=== PATIENT | female | born 1990 | race African-American/Black ===

== ENCOUNTER 2017-04-25 21:44 | Emergency (ER) | payer MEDICAID ==
[~2017-04-25] VITALS: Ht 162.6 cm; Wt 84.0 kg
[~2017-04-25 21:44] MED LIST: METR0.7514 PV; MIREIUD IU; NAPR550 PO
[2017-04-25 21:47] VITALS: BP 115/68; PULSE 114; RESP 16; TEMP 99.4; O2SAT 100
--- NOTE | 2017-04-25 21:51 | PD ---
Physical Exam Date Seen by Provider: Apr 25, 2017 Time Seen by Provider: 21:50 Narrative 26 yo female here for headache and neck stiffness. Headaches on/off for 1 week. Pressure like. Nothing makes it better. Come and go. Since yesterday developed stiffness to the neck and cannot look down without pain. Denies fevers. She is 21 weeks . Vitals are stable in triage. Awaiting Bed placement. Data Data Last Documented VS Vital Signs Date Time Temp Pulse Resp B/P Pulse Ox O2 Delivery O2 Flow Rate FiO2 04/25/17 21:47 99.4 114 16 115/68 100 Room Air [facility] Medical Record Reviewed: Yes Supervised Visit with NATALIYA: No Severiano Good Apr 25, 2017 21:51
[2017-04-25] MEDS ORDERED: PRENATAL VITAMIN PO (22:06)
[2017-04-25] MEDS ORDERED: SODIUM CHLOR 0.9% 1000 ML INJ 1,000 ML IV ONE (22:15)
[2017-04-25] MEDS ORDERED: diphenhydrAMINE HCL 50 MG/ML VIAL IV PUSH ONE (22:15)
[2017-04-25] MEDS ORDERED: METOCLOPRAMIDE INJ 10 MG in SODIUM CHLORIDE 0.9% INJ 50 ML IV ONE (22:15)
[2017-04-25 22:25] VITALS: BP 118/63; PULSE 115; RESP 16; O2SAT 98
[2017-04-25 22:31] LABS: AUTOMATED NEUTROPHIL # 8.3 TH/MM3 (1.8-7.7); BASOPHIL % 0.2 % (0.0-2.0); EOSINOPHIL # 0.1 TH/MM3 (0-0.4); EOSINOPHIL % 0.7 % (0.0-4.0); HEMATOCRIT 31.3 % (35.0-46.0); HEMO FLAGS DIFF FINAL; LYMPH % 15.6 % (9.0-44.0); LYMPHOCYTE # 1.7 TH/MM3 (1.0-4.8); MEAN CELL VOLUME 90.8 FL (80.0-100.0); MEAN CORPUSCULAR HEMOGLOBIN 31.7 PG (27.0-34.0); MEAN CORPUSCULAR HGB CONC 34.9 % (32.0-36.0); MONO % 9.4 % (0.0-8.0); NEUT % 74.1 % (16.0-70.0); PLATELET COUNT 231 TH/MM3 (150-450); RED BLOOD COUNT 3.45 MIL/MM3 (4.00-5.30); RED CELL DISTRIBUTION WIDTH 13.1 % (11.6-17.2); WHITE BLOOD COUNT 11.2 TH/MM3 (4.0-11.0)
[2017-04-25 22:49] LABS: ANION GAP 9 MEQ/L (5-15); BICARBONATE 24.4 MEQ/L (21.0-32.0); BLOOD UREA NITROGEN 5 MG/DL (7-18); CHLORIDE 109 MEQ/L (98-107); GLOMERULAR FILTRATION RATE 164 ML/MIN (>89); POTASSIUM 3.6 MEQ/L (3.5-5.1); SODIUM (NA) 142 MEQ/L (136-145)
[2017-04-25 22:52] LABS: ALKALINE PHOSPHATASE 59 U/L (45-117); ALT (GPT) 32 U/L (10-53); AST (GOT) 21 U/L (15-37); TOTAL BILIRUBIN ADULT 0.2 MG/DL (0.2-1.0)
[2017-04-25 23:00] VITALS: BP 123/57; PULSE 106; RESP 16; O2SAT 98
[2017-04-25 23:20] LABS: BLOOD, URINE NEG (NEG); GLUCOSE,URINE NEG (NEG); KETONE, URINE NEG (NEG); MUCUS URINE FEW /lpf (OCC); NITRITE,URINE NEG (NEG); SQUAMOUS EPITHELIAL CELL URINE 1 /hpf (0-5); URINE COLOR YELLOW (YELLW/STRAW)
[2017-04-25 23:21] LABS: COMMENT (UR) CULT NOT INDICATED; CULTURE IF INDICATED CULT NOT INDICATED
--- NOTE | 2017-04-25 23:43 | PD ---
HPI Chief Complaint: Headache Time Seen by Provider: 22:02 Travel History International Travel<30 days: No Contact w/Intl Traveler<30days: No Traveled to known affect area: No History of Present Illness HPI Patient is a 26-year-old female, 21 weeks , who comes in complaining of a headache. She says she has had the headache all week, is mostly frontal and puts pressure on her eyes. She says today while at work, as a [employer], she started to have spasm in the right side of her neck. She says that the muscles in her neck are very tense this has caused increased pain in her head. She denies fever or chills. She says she has occasional nausea and occasional blurred vision. She denies any head trauma. She has not noticed any leg swelling. She says she is not had any complications and her other 2 pregnancies. She called her OB, who thought it might be a caffeine withdrawal headache. PFSH Past Medical History Diminished Hearing: No ?: LMP: November 26, 2016 Menopausal: No : 1 Para: 1 Miscarriage: 0 : 0 Social History Alcohol Use: No Tobacco Use: No Substance Use: No Allergies-Medications (Allergen,Severity, Reaction): Coded Allergies: No Known Allergies (Verified , 04/25/17) Reported Meds & Prescriptions Reported Meds & Active Scripts Active Reported [ Vitamin] PO DAILY Review of Systems Except as stated in HPI: all other systems reviewed are Neg General / Constitutional: No: Fever, Chills HENT: Positive: Headaches, No: Lightheadedness Cardiovascular: No: Chest Pain or Discomfort Respiratory: No: Shortness of Breath Gastrointestinal: Positive: Nausea, No: Vomiting, Abdominal Pain Genitourinary: No: Dysuria Musculoskeletal: No: Edema Skin: No Rash, No Change in Pigmentation Neurologic: No: Weakness, Dizziness, Change in Mentation, Sensory Disturbance Physical Exam Narrative GENERAL: Her, no acute distress. SKIN: Focused skin assessment warm/dry. HEAD: Atraumatic. Normocephalic. Tender to palpation of the frontal sinus. EYES: Pupils equal and round and reactive. No scleral icterus. Extraocular movements intact. ENT: Mucous membranes pink and moist. NECK: Trachea midline. No JVD. Tender to the right trapezius muscle. No meningeal signs. CARDIOVASCULAR: Regular rate and rhythm. No murmur appreciated. RESPIRATORY: No accessory muscle use. Clear to auscultation. Breath sounds equal bilaterally. GASTROINTESTINAL: Gravid abdomen, nontender to palpation. MUSCULOSKELETAL: No obvious deformities. No clubbing. No cyanosis. No edema. NEUROLOGICAL: Awake and alert. No obvious cranial nerve deficits. Motor grossly within normal limits. Normal speech. PSYCHIATRIC: Appropriate mood and affect; insight and judgment normal. Data Data Last Documented VS Vital Signs Date Time Temp Pulse Resp B/P Pulse Ox O2 Delivery O2 Flow Rate FiO2 04/25/17 21:47 99.4 114 16 115/68 100 Room Air Orders Iv Access Insert/Monitor (04/25/17 22:10) Complete Blood Count With Diff (04/25/17 22:10) Comprehensive Metabolic Panel (04/25/17 22:10) Urinalysis - C+S If Indicated (04/25/17 22:10) Diphenhydramine Inj (Benadryl Inj) (04/25/17 22:15) Metoclopramide Inj (Reglan Inj) (04/25/17 22:15) Sodium Chlor 0.9% 1000 Ml Inj (Ns 1000 M (04/25/17 22:15) Acetaminophen (Tylenol) (04/25/17 23:45) Labs Laboratory Tests Test 04/25/17 04/25/17 22:10 23:00 White Blood Count 11.2 TH/MM3 Red Blood Count 3.45 MIL/MM3 Hemoglobin 10.9 GM/DL Hematocrit 31.3 % Mean Corpuscular Volume 90.8 FL Mean Corpuscular Hemoglobin 31.7 PG Mean Corpuscular Hemoglobin 34.9 % Concent Red Cell Distribution Width 13.1 % Platelet Count 231 TH/MM3 Mean Platelet Volume 7.6 FL Neutrophils (%) (Auto) 74.1 % Lymphocytes (%) (Auto) 15.6 % Monocytes (%) (Auto) 9.4 % Eosinophils (%) (Auto) 0.7 % Basophils (%) (Auto) 0.2 % Neutrophils # (Auto) 8.3 TH/MM3 Lymphocytes # (Auto) 1.7 TH/MM3 Monocytes # (Auto) 1.0 TH/MM3 Eosinophils # (Auto) 0.1 TH/MM3 Basophils # (Auto) 0.0 TH/MM3 CBC Comment DIFF FINAL Differential Comment Sodium Level 142 MEQ/L Potassium Level 3.6 MEQ/L Chloride Level 109 MEQ/L Carbon Dioxide Level 24.4 MEQ/L Anion Gap 9 MEQ/L Blood Urea Nitrogen 5 MG/DL Creatinine 0.55 MG/DL Estimat Glomerular Filtration 164 ML/MIN Rate Random Glucose 94 MG/DL Calcium Level 9.1 MG/DL Total Bilirubin 0.2 MG/DL Aspartate Amino Transf 21 U/L (AST/SGOT) Alanine Aminotransferase 32 U/L (ALT/SGPT) Alkaline Phosphatase 59 U/L Total Protein 6.8 GM/DL Albumin 2.9 GM/DL Urine Color YELLOW Urine Turbidity CLEAR Urine pH 6.0 Urine Specific [place] 1.021 Urine Protein TRACE mg/dL Urine Glucose (UA) NEG mg/dL Urine Ketones NEG mg/dL Urine Occult Blood NEG Urine Nitrite NEG Urine Bilirubin NEG Urine Urobilinogen 2.0 MG/DL Urine Leukocyte Esterase TRACE Urine RBC 1 /hpf Urine WBC 2 /hpf Urine Squamous Epithelial 1 /hpf Cells Urine Mucus FEW /lpf Microscopic Urinalysis Comment CULT NOT INDICATED MDM Medical Decision Making Medical Screen Exam Complete: Yes Emergency Medical Condition: Yes Medical Record Reviewed: Yes Differential Diagnosis Tension headache versus muscle spasm versus sinusitis Narrative Course Patient is a 26-year-old female comes in complaining of headache and neck pain. Exam shows no meningeal signs, her muscles on the right side of the neck are tense. IV established, labs sent. Liver function testing is within normal limits. There is trace protein in her urine. She has no leg edema. Blood pressure is within normal limits. Patient has no signs of preeclampsia at this time. He has no history of fever or infectious symptoms, making meningitis very unlikely. I discussed with the patient possible CT of her head and further testing. She says she is feeling a little bit better and would like to go home. She says she will come back if she is feeling worse or does not get better. She is advised to call her OB in the morning. Advised to return any time as needed for any worsening symptoms. Diagnosis Primary Impression: Headache Qualified Code: G44.209 - Acute non intractable tension-type headache Additional Impression: Muscle spasm Patient Instructions: Acute Headache (ED), General Instructions, Muscle Spasm ( ED) Additional Instructions: Drink plenty of fluids. Take Tylenol as needed for pain. Try to stretch her neck. Follow-up with your OB. Return any time for any worsening symptoms. Disposition: 01 DISCHARGE HOME Condition: Stable Dominique Salazar MD Apr 25, 2017 23:43
[2017-04-25] MEDS ORDERED: ACETAMINOPHEN 325 MG TAB PO ONE (23:45)
== END 2017-04-26 00:09 | disposition home or self-care (01) ==
LOC: NEPC 21:44
DX: O26.892 Other specified pregnancy related conditions, second trimester (principal); G44.209 Tension-type headache, unspecified, not intractable; Z3A.21 21 weeks gestation of pregnancy
CPT/HCPCS: 80053; 81001; 85025; 96365; 96375; 99284; J1200; J2765; J7030